=== PATIENT | female | born 1935 ===

== ENCOUNTER → 2017-10-21 | Outpatient (CLI) | payer OTHER ==
[~2017-10-21] MED LIST: LISINOPRIL10 MG PO; LOPRESSOR HCT 51 TAB PO; TOPROL XL50 MG PO; ZOCOR5 MG PO
== END | disposition home or self-care (01) ==
LOC: NUCLEAR 10:19
DX: I34.0 Nonrheumatic mitral (valve) insufficiency (principal)

== ENCOUNTER 2018-03-16 09:33 | Outpatient (CLI) | payer OTHER | END 2018-03-16 09:44 | disposition home or self-care (01) | LOC: NUCLEAR 09:33 | DX: I34.0 Nonrheumatic mitral (valve) insufficiency (principal); I11.9 Hypertensive heart disease without heart failure ==

== ENCOUNTER 2020-10-08 11:42 | Outpatient (CLI) | payer OTHER | END 2020-10-08 12:07 | disposition home or self-care (01) | LOC: SONOGRAMA 11:42 | PROVIDERS: ATTEND Pathology Anatomic Pathology & Clinical Pathology | DX: E04.1 Nontoxic single thyroid nodule (principal) ==

== ENCOUNTER 2023-01-17 15:05 | Emergency (ER) | payer OTHER ==
[~2023-01-17] VITALS: Ht 152.4 cm; Wt 44.5 kg
== END 2023-01-17 19:41 | disposition home or self-care (01) ==
LOC: ER 15:05
DX: R40.0 Somnolence (principal); Z20.822 Contact with and (suspected) exposure to COVID-19